=== PATIENT | female | born 1965 | race Caucasian/White ===

== ENCOUNTER → 2020-11-26 | Outpatient (CLI) | payer BC ==
--- NOTE | 2020-11-26 13:07 | Diagnostic Imaging Report ---
INDICATION: ENLARGED THYROID TECHNIQUE: Grayscale sonographic images of the thyroid gland. CORRELATION STUDY: None. FINDINGS: RIGHT LOBE: Enlarged at 7.2 x 3.7 x 4.9 cm. Heterogeneous echotexture throughout the right lobe. Within the medial aspect is a slightly lobulated more focal uniformly hyperechoic nodule. There is some internal vascularity present. This measures 1.0 x 1.2 x 1.5 cm. LEFT LOBE: 7.1 x 2.6 x 3.5 cm. There is very heterogeneous echotexture throughout the left lobe. Isthmus is also enlarged and heterogeneous. There is diffuse increased vascularity throughout the thyroid gland. IMPRESSION: 1. Abnormal appearance about the thyroid gland which is rather enlarged with fairly heterogeneous echotexture along with increased vascularity. This is nonspecific but could be seen with underlying thyroiditis. Correlation with thyroid function status is recommended. If further assessment is desired, thyroid scan and uptake may be of additional diagnostic utility. 2. There is slightly more focal more uniformly hyperechoic nodule in the central right lobe at 1.5 cm in size. Follow-up ultrasound imaging in approximately six months is recommended for reassessment. (Normal gland size: 4-5 x 2 x 2 cm) Dictated by: Dictated on workstation # [id number]
--- NOTE | 2020-11-26 15:49 | Diagnostic Imaging Report ---
INDICATION: Routine screening. COMPARISON: 02/06/2015 and 06/29/2009. TECHNIQUE: 2D and 3D bilateral screening mammography was performed with CAD. FINDINGS: Scattered fibroglandular densities are identified bilaterally. There has been development of some calcifications in the outer right breast at mid depth which are somewhat linear in distribution. It is uncertain if these could be vascular versus ductal. A nodular density more medially in the right breast is stable. There is a benign nodule in the lateral right breast as well. The nodular density in the outer aspect of the left breast at mid to posterior depth appears stable. No spiculated mass is identified. The axillae are unremarkable. IMPRESSION: Right breast calcifications. Additional views are recommended for further evaluation. ACR BI-RADS Category 0: Incomplete. (Needs additional imaging evaluation). Result letter will be mailed to the patient. Note: At least 10% of breast cancer is not imaged by mammography. Dictated by: Dictated on workstation # [id number]
== END ==
LOC: RAD 11:01
PROVIDERS: ATTEND Surgery
DX: Z12.31 Encounter for screening mammogram for malignant neoplasm of breast (principal); R92.1 Mammographic calcification found on diagnostic imaging of breast; E04.9 Nontoxic goiter, unspecified
CPT/HCPCS: 76536; 77063; 77067

== ENCOUNTER → 2020-12-17 | Outpatient (CLI) | payer BC ==
--- NOTE | 2020-12-17 13:05 | Diagnostic Imaging Report ---
INDICATION: Right breast calcifications. Patient presents for additional views. Correlation is made with the recent screening mammogram from 11/26/2020. Unilateral right 2-D and 3-D diagnostic mammography was performed. This includes magnification CC and ML views as well as conventional 90 degrees lateral views. Additional views demonstrate numerous calcifications in the right breast. There are some calcifications with demonstrating a branching ductal pattern in the outer portion of the right breast, mid 3rd. Biopsy of these calcifications is recommended. These do demonstrate some pleomorphism. No associated soft tissue mass is seen. There are indeterminate clusters of microcalcifications more anteriorly in the right breast outer portion. IMPRESSION: BI-RADS Category 4 Indeterminate microcalcifications in the outer right breast mid depth, concerning for DCIS. Tissue sampling is recommended. These would be amenable to stereotactic biopsy. ACR BI-RADS Category 4: Suspicious abnormality. Result letter will be mailed to the patient. Note: At least 10% of breast cancer is not imaged by mammography. Dictated by: Dictated on workstation # [id number]
== END ==
LOC: RAD 12:27
PROVIDERS: ATTEND Nurse Practitioner
DX: R92.0 Mammographic microcalcification found on diagnostic imaging of breast (principal)

== ENCOUNTER → 2020-12-20 | Outpatient (CLI) | payer BC ==
[~2020-12-20] VITALS: Ht 175.3 cm; Wt 125.0 kg
[~2020-12-20] MED LIST: LIDOCAINE 1% INJ 20 ML 20 ML VIAL INJ ONE
--- NOTE | 2020-12-20 10:25 | Diagnostic Imaging Report ---
Indication: Right breast calcifications. Patient presents for stereotactic biopsy. Patient is brought to stereotactic suite and placed on a chair in a sitting upright position. Right breast was positioned lateral medial. The calcifications in the central slightly outer right breast were stereotactically targeted. Lateral right breast was then prepped and draped in usual sterile fashion. Small amount of 1% lidocaine was utilized for local anesthesia. 8 gauge needle was advanced from a lateral medial approach place per stereotactic coordinates. A total of 4 core biopsies were obtained with vacuum-assisted device. Specimen radiograph does demonstrate microcalcifications within specimen labeled #1 and 4. All images were viewed on a dedicated workstation. IMPRESSION: Successful stereotactic biopsy of right breast calcifications, as described with dedicated vacuum-assisted device. Pathology results are currently pending. Dictated by: Dictated on workstation # [id number]
== END ==
LOC: RAD 08:45
PROVIDERS: ATTEND Surgery
DX: R92.1 Mammographic calcification found on diagnostic imaging of breast (principal)
CPT/HCPCS: 19081

== ENCOUNTER 2021-11-18 21:48 | Emergency (ER) | payer BC ==
[~2021-11-18] VITALS: Ht 175 cm; Wt 113.3 kg
[2021-11-18 22:05] VITALS: BP 127/64
--- NOTE | 2021-11-18 22:28 | ED Cardiac General ---
History of Present Illness General Chief Complaint: Cardiac/General Problems Stated Complaint: ELEVATED HEART RATE,DIZZINESS Source: patient Exam Limitations: no limitations History of Present Illness Date Seen by Provider: Nov 18, 2021 Time Seen by Provider: 21:50 Initial Comments 56-year-old female with past medical history of hypertension coming in due to palpitations. She says the pain off and on today but constant since around 7 PM. She feels like her heart is racing. This is happened once in the past and it quickly stopped. She is never seen anybody for this in the past. Denies any chest pain, shortness of breath, abdominal pain, nausea, vomiting, diarrhea, fever, chills, weakness, numbness, cough, headache, or any other concerns. Has not taken any medications for this as of yet. She normally drinks 1 soda a day, and today she has had 3. Allergies and Home Medications Allergies Coded Allergies: No Known Drug Allergies (Unverified , 06/29/15) Patient Home Medication List Home Medication List Reviewed: Yes Review of Systems Review of Systems Constitutional: No chills, No fever EENTM: No Blurred Vision Respiratory: Denies Cough, Denies Shortness of Air Cardiovascular: Denies Chest Pain; Lightheadedness, Palpitations Gastrointestinal: Denies Abdominal Pain, Denies Diarrhea, Denies Nausea, Denies Vomiting Genitourinary: No Symptoms Reported Musculoskeletal: no symptoms reported Skin: no symptoms reported Psychiatric/Neurological: No Symptoms Reported Endocrine: No Symptoms Reported Hematologic/Lymphatic: No Symptoms Reported All Other Systems Reviewed Negative Unless Noted: Yes Past Fdzyjoc-Bkeuzz-Hfbwjf Hx Patient Social History Tobacco Use?: No Substance use?: No Alcohol Use?: No Past Medical History Surgeries: No Physical Exam Vital Signs Vital Signs - First Documented 11/18/21 22:05 Pulse 140 Resp 15 B/P (MAP) 127/64 (85) Pulse Ox 95 O2 Delivery Room Air Capillary Refill : Height, Weight, BMI Height: 5'9.00" Weight: 250lbs. oz. 113.795067hj; 40.67 BMI Method: General Appearance: No Apparent Distress, WD/WN HEENT: PERRL/EOMI, Normal ENT Inspection, Pharynx Normal Neck: Full Range of Motion, Normal Inspection, Non Tender, Supple Respiratory: Chest Non Tender, Lungs Clear, Normal Breath Sounds, No Accessory Muscle Use, No Respiratory Distress Cardiovascular: No Edema, Normal Peripheral Pulses, Tachycardia Gastrointestinal: Normal Bowel Sounds, Non Tender, Soft; No Distended, No Guarding Extremity: Normal Capillary Refill, Normal Inspection, Normal Range of Motion, Non Tender, No Calf Tenderness Neurologic/Psychiatric: Alert, No Motor/Sensory Deficits, Normal Mood/Affect Skin: Normal Color, Warm/Dry Lymphatic: No Adenopathy Progress/Results/Core Measures Results/Orders Lab Results Laboratory Tests Test 11/18/21 22:25 Range/Units Sodium Level 140 135-145 MMOL/L Potassium Level 3.4 L 3.6-5.0 MMOL/L Chloride Level 103 98-107 MMOL/L Carbon Dioxide Level 26 21-32 MMOL/L Anion Gap 11 5-14 MMOL/L Blood Urea Nitrogen 12 7-18 MG/DL Creatinine 0.72 0.60-1.30 MG/DL Estimat Glomerular Filtration Rate 97 BUN/Creatinine Ratio 17 Glucose Level 164 H 70-105 MG/DL Calcium Level 9.0 8.5-10.1 MG/DL Magnesium Level 2.0 1.6-2.4 MG/DL My Orders Orders - CALIN BECKMAN MD Midazolam Injection (Versed Injection) (11/18/21 22:30) Adenosine Injection (Adenocard Injection (11/18/21 22:30) Ekg Tracing (11/18/21 22:21) Ed Iv/Invasive Line Start (11/18/21 22:42) Ns Iv 1000 Ml (Sodium Chloride 0.9%) (11/18/21 22:45) Ns Iv 1000 Ml (Sodium Chloride 0.9%) (11/18/21 22:43) Adenosine Injection (Adenocard Injection (11/18/21 22:59) Diltiazem Injection (Cardizem Injection) (11/18/21 23:15) Diltiazem Drip Pre-Mix (Cardizem Drip Pr (11/18/21 23:15) Diltiazem Drip Pre-Mix (Cardizem Drip Pr (11/18/21 23:11) Diltiazem Cd 24 Hr Capsule (Cardizem Cd (11/18/21 23:20) Basic Metabolic Panel (11/18/21 23:21) Magnesium (11/18/21 23:21) Ekg Tracing (11/18/21 23:43) Thyroid Stimulating Hormone (11/18/21 23:51) Apixaban Tablet (Eliquis Tablet) (11/19/21 00:00) Potassium Chloride (Tablet) (K Dur Table (11/19/21 00:00) Medications Given in ED Current Medications Medications Dose Ordered Sig/Tommy Route Start Time Stop Time Status Last Admin Dose Admin Adenosine 6 mg STK-MED ONCE IV 11/18/21 22:59 11/18/21 23:03 DC 11/18/21 23:05 6 MG Adenosine 12 mg ONCE ONCE IV 11/18/21 22:30 11/18/21 22:31 DC 11/18/21 22:55 12 MG Diltiazem HCl 20 mg ONCE ONCE IVP 11/18/21 23:15 11/18/21 23:16 DC 11/18/21 23:20 20 MG Diltiazem HCl 125 ml @ ud STK-MED ONCE IV 11/18/21 23:11 11/18/21 23:15 DC 11/18/21 23:28 5 MLS/HR Midazolam HCl 1 mg ONCE ONCE IVP 11/18/21 22:30 11/18/21 22:31 DC 11/18/21 22:53 1 MG Vital Signs/I&O 11/18/21 22:05 Pulse 140 Resp 15 B/P (MAP) 127/64 (85) Pulse Ox 95 O2 Delivery Room Air Progress Progress Note : Progress Note 56-year-old female with above history coming in with intermittent palpitations and feel like her heart is racing but has been constant for the past couple hours. Heart rate was in the 140s on arrival. EKG consistent with SVT. Tried vagal maneuvers x2 which were unsuccessful. Afterwards an IV was placed and we gave adenosine with 2 attempts and it transiently fixed her but then she went back into SVT. She was given a bolus of IV fluids as well. Afterwards we tried IV diltiazem. We bolused her with 20 mg of IV diltiazem which converted her to sinus rhythm. She seemed to intermittently go back for shorter periods of time into SVT so started to drip and gave her long-acting oral diltiazem. We titra denise off the drip after about 20 minutes to give the oral medication time to work. The patient then went into atrial fibrillation but her rate was controlled. She is not sure if she is ever been in A. fib before, and I am unsure if she was in earlier today. Her [id number] score is 2 and has no bleeding risk so I will give her a dose of Eliquis followed by a prescription. 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 Given she is rate controlled, and symptom-free at this time I believe it is appropriate for her to be discharged with outpatient follow-up with cardiology. She says she prefers to follow-up with [facility] where her other doctors are. Her potassium came back just slightly low so she was given oral potassium as well. TSH is pending. She was then discharged home in stable condition with strict return precautions. Initial ECG Impression Date: Nov 18, 2021 Initial ECG Impression Time: 22:00 Initial ECG Rate: 141 Initial ECG Rhythm: SVT Comment Narrow QRS, normal axis, no significant ST changes Departure Impression Primary Impression: SVT (supraventricular tachycardia) Additional Impression: Afib Qualified Codes: I48.91 - Unspecified atrial fibrillation Disposition: 01 HOME, SELF-CARE Condition: Stable Departure-Patient Inst. Decision time for Depature: 23:57 Referrals: SELFBELEM MD (PCP/Family) Primary Care Physician Patient Instructions: Atrial Fibrillation, Paroxysmal Supraventricular Tachycardia (DC) Add. Discharge Instructions: You were seen in the emergency department after your heart was racing. Initially you were in a rhythm called supraventricular tachycardia otherwise known as SVT. We gave you medicines to get you out of this rhythm. When he got out of it you went into atrial fibrillation. We will be starting you on a blood thinner given the risk of stroke with A. fib which this should lower your risk. We will also be starting you on a medication called metoprolol which should help keep your heart rate lower. Please follow-up with a pantograph machine set up operator of your choice at [facility] which you said you preferred. Please also call your primary care doctor to follow-up with him. If you develop any chest pain, shortness of breath, or any other concerns and please come back to the ER. Scripts Metoprolol Tartrate (Metoprolol Tartrate) 25 Mg Tablet 12.5 MG PO BID for 30 Days, #30 TAB Prov: CALIN BECKMAN MD 11/18/21 Apixaban (Eliquis) 5 Mg Tablet 5 MG PO BID for 30 Days, #60 TAB Prov: CALIN BECKMAN MD 11/18/21 Work/School Note: Work Release Form Date Seen in the Emergency Department: Nov 18, 2021 Return to Work: Nov 20, 2021 Restrictions: No Restrictions CALIN BECKMAN MD Nov 18, 2021 22:28
[2021-11-18] MEDS ORDERED: ADENOSINE 6 MG/2 ML (ADENOCARD) VIAL IV ONE ×2 (22:30→22:59)
[2021-11-18] MEDS ORDERED: MIDAZOLAM 2 MG/2 ML (VERSED) VIAL IVP ONE (22:30)
[2021-11-18] MEDS ORDERED: LACTATED RINGERS 1,000 ML IV SCH (22:30)
[2021-11-18] MEDS ORDERED: NS IV 1000 ML 1,000 ML ONE (22:43)
[2021-11-18] MEDS ORDERED: NS IV 1000 ML 1,000 ML IV SCH (22:45)
[2021-11-18] MEDS ORDERED: dilTIAZem DRIP PRE-MIX 125 ML IV ONE (23:11)
[2021-11-18] MEDS ORDERED: dilTIAZem DRIP PRE-MIX 125 ML IV SCH (23:15)
[2021-11-18] MEDS ORDERED: dilTIAZem120 MG (CARDIZEM CD) CAP PO STA (23:20)
[2021-11-18 23:36] LABS: POTASSIUM 3.4 MMOL/L (3.6-5.0)
[2021-11-18 23:42] LABS: CREATININE SERUM 0.72 MG/DL (0.60-1.30)
[2021-11-18] MEDS ORDERED: APIX5TAB PO (23:59)
[2021-11-18] MEDS ORDERED: METO-333 PO (23:59)
[2021-11-19] MEDS ORDERED: APIXABAN 5 MG (ELIQUIS) TABLET PO ONE
[2021-11-19] MEDS ORDERED: KCL 20 MEQ TAB (K-DUR) PO ONE
== END 2021-11-19 00:26 | disposition home or self-care (01) ==
LOC: EDUNIT# 21:48 → ER FS 21:49
DX: I47.1 Supraventricular tachycardia (principal); I48.91 Unspecified atrial fibrillation; I10 Essential (primary) hypertension
CPT/HCPCS: 36415; 80048; 83735; 84443

== ENCOUNTER → 2021-12-23 | Outpatient (CLI) | payer BC ==
[~2021-12-23] MED LIST changes: +APIX5TAB PO; -LIDOCAINE 1% INJ 20 ML 20 ML VIAL INJ ONE; +METO-333 PO
== END ==
LOC: LABNPT 10:24
PROVIDERS: ATTEND Internal Medicine Cardiovascular Disease
DX: Z01.810 Encounter for preprocedural cardiovascular examination (principal); Z01.812 Encounter for preprocedural laboratory examination; I48.0 Paroxysmal atrial fibrillation; Z20.822 Contact with and (suspected) exposure to COVID-19
CPT/HCPCS: 87635

== ENCOUNTER 2022-11-29 16:12 | Emergency (ER) | payer BC ==
[~2022-11-29] VITALS: Ht 175.3 cm; Wt 117.9 kg
--- NOTE | 2022-11-29 16:21 | ED Upper Extremity ---
General Chief Complaint: Upper Extremity Stated Complaint: LT WRIST INJ History of Present Illness Date Seen by Provider: Nov 29, 2022 Time Seen by Provider: 16:21 Initial Comments 57-year-old female presents with left wrist injury. She reports that she slipped in the mud and fell landing on her arm. She landed somewhat flat on her left arm but felt a "pop in her wrist. She has swelling over the lateral posterior aspect. She has painful range of motion. She reports no other injuries Allergies and Home Medications Allergies Coded Allergies: No Known Drug Allergies (Unverified , 06/29/15) Patient Home Medication List Home Medication List Reviewed: Yes Apixaban (Eliquis) 5 Mg Tablet, 5 MG PO BID Prescribed by: CALIN BECKMAN on 11/18/21 086 Metoprolol Tartrate (Metoprolol Tartrate) 25 Mg Tablet, 12.5 MG PO BID Prescribed by: CALIN BECKMAN on 11/18/21 147 Review of Systems Constitutional: no symptoms reported EENTM: no symptoms reported Respiratory: no symptoms reported Cardiovascular: no symptoms reported Gastrointestinal: no symptoms reported Genitourinary: no symptoms reported Musculoskeletal: see HPI Skin: no symptoms reported Psychiatric/Neurological: No Symptoms Reported Past Zvvydol-Nqtgfc-Ocyols Hx Immunizations Up To Date First/Initial COVID19 Vaccinat: 02-13 Second COVID19 Vaccination Alex: 03-15 Past Medical History Surgeries: No Physical Exam Vital Signs Vital Signs - First Documented 11/29/22 16:16 Temp 35.7 Pulse 73 Resp 16 B/P (MAP) 149/92 (111) Pulse Ox 94 O2 Delivery Room Air Capillary Refill : Height, Weight, BMI Height: 5'9.00" Weight: 250lbs. oz. 113.892581wn; 36.00 BMI Method: General Appearance: WD/WN, no apparent distress HEENT: normal ENT inspection Neck: full range of motion, supple Cardiovascular: normal peripheral pulses, regular rate, rhythm Respiratory: lungs clear Gastrointestinal: non tender, soft Shoulder: normal inspection, non-tender Elbow/Forearm: normal inspection, non-tender Wrist: Yes bone tenderness, Yes deformity, Yes limited ROM, Yes soft tissue ten derness, Yes swelling Hand: normal inspection Neurologic/Psychiatric: alert, normal mood/affect, oriented x 3 Skin: normal color, warm/dry Progress/Results/Core Measures Results/Orders My Orders Orders - MÓNICA BENDER DO Wrist 3 View Left (11/29/22 16:22) Vital Signs/I&O 11/29/22 16:16 Temp 35.7 Pulse 73 Resp 16 B/P (MAP) 149/92 (111) Pulse Ox 94 O2 Delivery Room Air Progress Progress Note : Progress Note Patient's x-ray was reviewed. No acute fracture was noted. Patient with likely a wrist sprain. Recommended wman-vrw-pswzabn brace. She is stable and discharged Diagnostic Imaging Diagonstic Imaging: Xray Comments Date of Exam:11/29/22 WRIST 3 VIEW LEFT INDICATION: Fall, left wrist injury. TIME OF EXAM: 4:40 PM. EXAMINATION: Three views of the left wrist were obtained. FINDINGS: The distal radius and ulna appear to be intact. The carpus is intact. Metacarpals are unremarkable. No fractures are seen. IMPRESSION: No acute bony abnormality is detected. Reviewed: Reviewed by Me, Reviewed/Discussed Departure Impression Primary Impression: Unspecified sprain of left wrist, initial encounter Disposition: 01 HOME, SELF-CARE Condition: Stable Departure-Patient Inst. Referrals: SELFBELEM MD (PCP) Primary Care Physician Patient Instructions: Wrist Sprain ED Add. Discharge Instructions: You may use an Hector wrap or xbcz-hir-wgcfuew wrist brace as needed for pain. 4% topical lidocaine with menthol cream or gel use as directed on package. May try Voltaren cream or gel use as directed on package. Ice for the first 24 hours 3- 4 times daily for 15 minutes at a time then warm moist heat as needed. All discharge instructions reviewed with patient and/or family. Voiced understanding. MÓNICA BENDER DO Nov 29, 2022 16:21
--- NOTE | 2022-11-29 16:42 | Diagnostic Imaging Report ---
INDICATION: Fall, left wrist injury. TIME OF EXAM: 4:40 PM. EXAMINATION: Three views of the left wrist were obtained. FINDINGS: The distal radius and ulna appear to be intact. The carpus is intact. Metacarpals are unremarkable. No fractures are seen. IMPRESSION: No acute bony abnormality is detected. Dictated by: Dictated on workstation # [id number]
[2022-11-29 16:53] VITALS: BP 149/92
== END 2022-11-29 16:53 | disposition home or self-care (01) ==
LOC: EDUNIT# 16:12 → ER FS 16:13
DX: S63.502A Unspecified sprain of left wrist, initial encounter (principal); W01.0XXA Fall on same level from slipping, tripping and stumbling without subsequent striking against object, initial encounter
CPT/HCPCS: 73110

== ENCOUNTER 2023-08-25 22:58 | Observation (INO) | payer BC ==
[~2023-08-25] VITALS: Ht 177 cm; Wt 124.0 kg
--- NOTE | 2023-08-25 23:07 | ED Cardiac General ---
History of Present Illness General Stated Complaint: AFIB History of Present Illness Date Seen by Provider: Aug 25, 2023 Time Seen by Provider: 23:02 Initial Comments 58-year-old female with PMH of A-fib on Eliquis and metoprolol/breast ductal cancer with mastectomy and on estrogen replacement/thyroid disorder/SHALINI, is here with complaints of palpitations, and irregular heart rate noted on her iWatch. Patient has started exercising for 30 minutes a day for the past month and has lost 10 to 15 pounds. Patient went out today as well but did not have any symptoms at that time. Patient's symptoms began late evening tonight. Denies chest pain, shortness of breath, abdominal pain, recent illness, fever and chills, nausea and vomiting, diaphoresis. Patient took her metoprolol and Eliquis today. She is compliant with her medications. Allergies and Home Medications Allergies Coded Allergies: No Known Drug Allergies (Unverified , 06/29/15) Patient Home Medication List Home Medication List Reviewed: Yes Apixaban (Eliquis) 5 Mg Tablet, 5 MG PO BID Prescribed by: CALIN BECKMAN on 11/18/215 Metoprolol Tartrate (Metoprolol Tartrate) 25 Mg Tablet, 12.5 MG PO BID Prescribed by: CALIN BECKMAN on 11/18/21 3056 Review of Systems Review of Systems Constitutional: no symptoms reported EENTM: No Symptoms Reported Respiratory: No Symptoms Reported Cardiovascular: See HPI, Irregular Heart Rate, Palpitations Gastrointestinal: No Symptoms Reported Past Lrgbeeo-Sejsyu-Snncrk Hx Immunizations Up To Date First/Initial COVID19 Vaccinat: 02-13 Second COVID19 Vaccination Alex: 03-15 Third COVID19 Vaccination Date: 09-15 Past Medical History Surgery/Hospitalization HX: A-fib, v-tach Surgeries: No Physical Exam Vital Signs Vital Signs - First Documented 08/25/23 23:08 Temp 35.7 Pulse 131 Resp 18 B/P (MAP) 139/73 (95) Pulse Ox 20 O2 Delivery Room Air Capillary Refill : Height, Weight, BMI Height: 5'9.00" Weight: 250lbs. oz. 113.712684bn; 38.00 BMI Method: General Appearance: No Apparent Distress, Anxious, Obese HEENT: PERRL/EOMI Neck: Full Range of Motion, Normal Inspection Respiratory: Chest Non Tender, Lungs Clear, Normal Breath Sounds, No Accessory Muscle Use Cardiovascular: No Edema, Normal Peripheral Pulses, Irregularly Irregular, Tachycardia Gastrointestinal: Non Tender, Soft Extremity: Normal Range of Motion Neurologic/Psychiatric: Alert, Oriented x3, No Motor/Sensory Deficits Skin: Normal Color Progress/Results/Core Measures Results/Orders Lab Results Laboratory Tests Test 08/25/23 23:15 08/25/23 23:44 Range/Units White Blood Count 12.9 H 4.3-11.0 10^3/uL Red Blood Count 4.58 3.80-5.11 10^6/uL Hemoglobin 13.9 11.5-16.0 g/dL Hematocrit 41 35-52 % Mean Corpuscular Volume 89 80-99 fL Mean Corpuscular Hemoglobin 30 25-34 pg Mean Corpuscular Hemoglobin Concent 34 32-36 g/dL Red Cell Distribution Width 12.4 10.0-14.5 % Platelet Count 243 130-400 10^3/uL Mean Platelet Volume 9.9 9.0-12.2 fL Immature Granulocyte % (Auto) 0 % Neutrophils (%) (Auto) 59 42-75 % Lymphocytes (%) (Auto) 30 12-44 % Monocytes (%) (Auto) 9 0-12 % Eosinophils (%) (Auto) 2 0-10 % Basophils (%) (Auto) 0 0-10 % Neutrophils # (Auto) 7.6 1.8-7.8 10^3/uL Lymphocytes # (Auto) 3.8 1.0-4.0 10^3/uL Monocytes # (Auto) 1.2 H 0.0-1.0 10^3/uL Eosinophils # (Auto) 0.2 0.0-0.3 10^3/uL Basophils # (Auto) 0.0 0.0-0.1 10^3/uL Immature Granulocyte # (Auto) 0.0 0.0-0.1 10^3/uL Prothrombin Time 14.4 12.2-14.7 SEC INR Comment 1.1 0.8-1.4 Activated Partial Thromboplast Time 33 24-35 SEC Sodium Level 140 135-145 MMOL/L Potassium Level 4.2 3.6-5.0 MMOL/L Chloride Level 102 98-107 MMOL/L Carbon Dioxide Level 26 21-32 MMOL/L Anion Gap 12 5-14 MMOL/L Blood Urea Nitrogen 13 7-18 MG/DL Creatinine 0.74 0.60-1.30 MG/DL Estimat Glomerular Filtration Rate 93 BUN/Creatinine Ratio 18 Glucose Level 107 H 70-105 MG/DL Calcium Level 10.0 8.5-10.1 MG/DL Corrected Calcium 9.9 8.5-10.1 MG/DL Magnesium Level 2.3 1.6-2.4 MG/DL Total Bilirubin 0.3 0.1-1.0 MG/DL Aspartate Amino Transf (AST/SGOT) 21 5-34 U/L Alanine Aminotransferase (ALT/SGPT) 18 0-55 U/L Alkaline Phosphatase 97 40-136 U/L Troponin I < 0.30 <0.30 NG/ML Pro-B-Type Natriuretic Peptide 103.9 <125.0 PG/ML Total Protein 8.0 6.4-8.2 GM/DL Albumin 4.1 3.2-4.5 GM/DL Urine Color YELLOW Urine Clarity CLEAR Urine pH 6.0 5-9 Urine Specific [place] <=1.005 1.016-1.022 Urine Protein NEGATIVE NEGATIVE Urine Glucose (UA) NEGATIVE NEGATIVE Urine Ketones NEGATIVE NEGATIVE Urine Nitrite NEGATIVE NEGATIVE Urine Bilirubin NEGATIVE NEGATIVE Urine Urobilinogen 0.2 < = 1.0 MG/DL Urine Leukocyte Esterase 2+ H NEGATIVE Urine RBC (Auto) NEGATIVE NEGATIVE Urine RBC RARE /HPF Urine WBC 5-10 H /HPF Urine Squamous Epithelial Cells 0-2 /HPF Urine Renal Epithelial Cells RARE /HPF Urine Crystals NONE /LPF Urine Bacteria NEGATIVE /HPF Urine Casts PRESENT /LPF Urine Hyaline Casts 0-2 H /LPF Urine Mucus SMALL H /LPF Urine Culture Indicated YES Urine Opiates Screen NEGATIVE NEGATIVE Urine Oxycodone Screen NEGATIVE NEGATIVE Urine Methadone Screen NEGATIVE NEGATIVE Urine Barbiturates Screen NEGATIVE NEGATIVE Ur Tricyclic Antidepressants Screen NEGATIVE NEGATIVE Urine Phencyclidine Screen NEGATIVE NEGATIVE Urine Amphetamines Screen NEGATIVE NEGATIVE Urine Methamphetamines Screen NEGATIVE NEGATIVE Urine Benzodiazepines Screen NEGATIVE NEGATIVE Urine Cocaine Screen NEGATIVE NEGATIVE Urine Cannabinoids Screen NEGATIVE NEGATIVE My Orders Orders - CAITLIN CORNELL MD Continuous Ekg Monitoring (08/25/23 23:07) Ekg Tracing (08/25/23 23:07) Diltiazem Injection (Diltiazem Injection (08/25/23 23:15) Diltiazem Drip Pre-Mix (Diltiazem Drip P (08/25/23 23:08) Cbc And Automated Diff (08/25/23 23:11) Comprehensive Metabolic Panel (08/25/23 23:11) Magnesium (08/25/23 23:11) Protime With Inr (08/25/23 23:11) Partial Thromboplastin Time (08/25/23 23:11) Probnp Fs (08/25/23 23:11) Troponin I Fs (08/25/23 23:11) Chest 1 View Ap/Pa Only (08/25/23 23:19) Drug Screen Stat (Urine) (08/25/23 23:40) Ua Culture If Indicated (08/25/23 23:40) Urine Culture (08/25/23 23:44) Ed Admission (Communication) (08/26/23 00:29) Medications Given in ED Current Medications Medications Dose Ordered Sig/Tommy Route Start Time Stop Time Status Last Admin Dose Admin Diltiazem HCl 10 mg ONCE ONCE IVP 08/25/23 23:15 08/25/23 23:17 DC 08/25/23 23:22 10 MG Vital Signs/I&O 08/25/23 08/25/23 08/25/23 23:08 23:22 23:26 Temp 35.7 Pulse 131 140 95 Resp 18 B/P (MAP) 139/73 (95) 151/99 115/67 Pulse Ox 20 O2 Delivery Room Air Progress Progress Note : Progress Note 1. 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 But they only had a bed available at [facility] and pt refused to go there since she only wants to go to [facility]. - Pt accepted to [facility] by Dr De Leon. Will admit to observation in ICU. Initial ECG Impression Date: Aug 25, 2023 Initial ECG Impression Time: 23:12 Initial ECG Rate: 125 Initial ECG Rhythm: A Fib/Flutter Initial ECG Intervals A-fib with RVR Initial ECG Impression: Atrial Fibrillation w/RVR Initial ECG Comparisson: No Previous ECG Available Diagnostic Imaging Diagonstic Imaging: Xray Plain Films/CT/US/NM/MRI: chest Departure Communication (Admissions) Time/Spoke to Admitting Phy: 00:28 - Pt accepted to [facility] by Dr De Leon. Will admit to observation in ICU. Impression Primary Impression: Atrial fibrillation with RVR Disposition: 30 STILL A PATIENT Condition: Stable Admissions Decision to Admit Reason: Admit from ER (General) Decision to Admit/Date: Aug 25, 2023 Time/Decision to Admit Time: 23:50 Transfer Method of Transfer: EMS Departure-Patient Inst. Referrals: BELEM HUDDLESTON MD (PCP/Family) Primary Care Physician CAITLIN CORNELL MD Aug 25, 2023 23:07
[2023-08-25] MEDS ORDERED: dilTIAZem DRIP PRE-MIX 125 ML IV STA (23:08)
[2023-08-25] MEDS ORDERED: dilTIAZem INJ 25 MG/5 ML VIAL IVP ONE (23:15)
[2023-08-25 23:27] LABS: BASOPHILS % (AUTO) 0 % (0-10); EOSINOPHILS # (AUTO) 0.2 10^3/uL (0.0-0.3); EOSINOPHILS % (AUTO) 2 % (0-10); HEMATOCRIT 41 % (35-52); HEMOGLOBIN 13.9 g/dL (11.5-16.0); LYMPHOCYTES # (AUTO) 3.8 10^3/uL (1.0-4.0); LYMPHOCYTES % (AUTO) 30 % (12-44); MEAN CORPUSCULAR HEMOGLOBIN 30 pg (25-34); MEAN CORPUSCULAR HGB CONC 34 g/dL (32-36); MEAN CORPUSCULAR VOLUME 89 fL (80-99); MEAN PLATELET VOLUME 9.9 fL (9.0-12.2); MONOCYTES # (AUTO) 1.2 10^3/uL (0.0-1.0); MONOCYTES % (AUTO) 9 % (0-12); NEUTROPHILS # (AUTO) 7.6 10^3/uL (1.8-7.8); NEUTROPHILS % (AUTO) 59 % (42-75); PLATELET COUNT 243 10^3/uL (130-400); WHITE BLOOD COUNT 12.9 10^3/uL (4.3-11.0)
[2023-08-25 23:38] LABS: INR 1.1 (0.8-1.4); PROTHROMBIN TIME PATIENT 14.4 SEC (12.2-14.7)
[2023-08-25 23:46] LABS: POTASSIUM 4.2 MMOL/L (3.6-5.0)
[2023-08-25 23:53] LABS: BILIRUBIN,URINE NEGATIVE (NEGATIVE); CLARITY,URINE CLEAR; COLOR,URINE YELLOW; GLUCOSE, URINE (UA) NEGATIVE (NEGATIVE); KETONES,URINE NEGATIVE (NEGATIVE); LEUKOCYTE ESTERASE ,URINE 2+ (NEGATIVE); NITRITE,URINE NEGATIVE (NEGATIVE); PROTEIN,URINE NEGATIVE (NEGATIVE)
[2023-08-25 23:53] LABS: ALANINE AMINOTRANSFERASE 18 U/L (0-55); ALBUMIN 4.1 GM/DL (3.2-4.5); ALKALINE PHOSPHATASE 97 U/L (40-136); BILIRUBIN,TOTAL 0.3 MG/DL (0.1-1.0); BUN/CREATININE RATIO 18; CARBON DIOXIDE 26 MMOL/L (21-32); CHLORIDE 102 MMOL/L (98-107); CREATININE SERUM 0.74 MG/DL (0.60-1.30); GFR ESTIMATED 93; GLUCOSE 107 MG/DL (70-105); MAGNESIUM 2.3 MG/DL (1.6-2.4); SODIUM 140 MMOL/L (135-145)
[2023-08-26 00:02] LABS: BACTERIA,URINE NEGATIVE /HPF; RBC,URINE RARE /HPF; RENAL EPITHELIAL CELLS,URINE RARE /HPF; SQUAMOUS EPITHELIAL CELL,UR 0-2 /HPF
[2023-08-26 00:03] LABS: HYALINE CASTS, URINE 0-2 /LPF
[2023-08-26 00:05] LABS: AMPHETAMINE SCREEN, URINE NEGATIVE (NEGATIVE); BARBITURATE SCREEN URINE NEGATIVE (NEGATIVE); CANNABINOID SCREEN, URINE NEGATIVE (NEGATIVE); COCAINE SCREEN URINE NEGATIVE (NEGATIVE); METHADONE STAT NEGATIVE (NEGATIVE); OPIATE SCREEN URINE NEGATIVE (NEGATIVE); OXYCODONE STAT NEGATIVE (NEGATIVE); TRICYCLIC ANTIDEPRESSANTS SCRE NEGATIVE (NEGATIVE)
[2023-08-26] MEDS ORDERED: NS IV 500 ML 500 ML ONE (00:57)
[2023-08-26] MEDS ORDERED: NS IV 500 ML 500 ML IV ONE (01:00)
[2023-08-26 01:11] VITALS: BP 111/98
--- NOTE | 2023-08-26 02:52 | Tele-ICU Progress Note ---
Progress Note 58F with h/o afib on eliquis and metoprolol, BRCA s/p mastectomy on ER therapy, SHALINI transferred from [facility] ED for afib with RVR. She has been working out daily for the past month, including today without issue. This evening developed palpitations and her Apple Watch indicated an irregular HR. She was started on a cardizem gtt with initial improvement in HR from 140s to 100s. Now 97/61 with HR 87, fib. - afib ---cardiology consult ---cardizem for rate control ---continue home eliquis Patient assessed via real time audiovisual communication system. CCT 8 min Focused Exam Height, Weight, BMI Height: 5'9.00" Weight: 250lbs. oz. 113.799638mh; 36.00 BMI Method: NIKIA CUEVAS MD Aug 26, 2023 02:52
[2023-08-26] MEDS ORDERED: dilTIAZem DRIP 125 MG/125 ML DRIP IV SCH (03:00)
[2023-08-26] MEDS ORDERED: ACETAMINOPHEN 325 MG TABLET PO PRN (03:00)
[2023-08-26] MEDS ORDERED: MELATONIN 3 MG TABLET PO PRN (03:00)
[2023-08-26] MEDS ORDERED: CATHETER FLUSH 10 ML SYR IVP PRN (03:00)
[2023-08-26] MEDS ORDERED: NS IV 500 ML 500 ML IV PRN (03:15)
[2023-08-26] MEDS ORDERED: NS IV 1000 ML 1,000 ML IV PRN (03:15)
[2023-08-26 04:48] LABS: BASOPHILS % (AUTO) 0 % (0-10); EOSINOPHILS # (AUTO) 0.2 10^3/uL (0.0-0.3); EOSINOPHILS % (AUTO) 1 % (0-10); HEMATOCRIT 40 % (35-52); HEMOGLOBIN 13.6 g/dL (11.5-16.0); LYMPHOCYTES # (AUTO) 2.9 10^3/uL (1.0-4.0); LYMPHOCYTES % (AUTO) 26 % (12-44); MEAN CORPUSCULAR HEMOGLOBIN 30 pg (25-34); MEAN CORPUSCULAR HGB CONC 34 g/dL (32-36); MEAN CORPUSCULAR VOLUME 90 fL (80-99); MEAN PLATELET VOLUME 10.1 fL (9.0-12.2); MONOCYTES # (AUTO) 0.8 10^3/uL (0.0-1.0); MONOCYTES % (AUTO) 7 % (0-12); NEUTROPHILS # (AUTO) 7.2 10^3/uL (1.8-7.8); NEUTROPHILS % (AUTO) 65 % (42-75); PLATELET COUNT 239 10^3/uL (130-400); WHITE BLOOD COUNT 11.1 10^3/uL (4.3-11.0)
[2023-08-26 05:09] LABS: ALBUMIN 3.7 GM/DL (3.2-4.5); BILIRUBIN,TOTAL 0.4 MG/DL (0.1-1.0); CALCIUM 9.5 MG/DL (8.5-10.1); CREATININE SERUM 0.73 MG/DL (0.60-1.30); MAGNESIUM 1.9 MG/DL (1.6-2.4); PHOSPHORUS 3.8 MG/DL (2.3-4.7); POTASSIUM 3.8 MMOL/L (3.6-5.0); TOTAL PROTEIN 7.2 GM/DL (6.4-8.2)
[2023-08-26] MEDS ORDERED: POTASSIUM CHLORIDE 20 MEQ TABLET PO SCH (06:00)
[2023-08-26] MEDS ORDERED: POTASSIUM CL 10MEQ/50ML IVPB 50 ML IV SCH (06:00)
[2023-08-26] MEDS ORDERED: MAGNESIUM 1 GM/100 ML IVPB 100 ML IV SCH (06:00)
[2023-08-26] MEDS ORDERED: CATHETER FLUSH 10 ML SYR IVP SCH (06:00)
[2023-08-26] MEDS ORDERED: LEVOTHYROXINE 88 MCG TABLET PO SCH (06:30)
--- NOTE | 2023-08-26 06:59 | Diagnostic Imaging Report ---
INDICATION: Atrial fibrillation. FINDINGS: Lungs are clear. No failure, effusion or pneumothorax. IMPRESSION: No acute appearing abnormality. Dictated by: Dictated on workstation # [id number]
[2023-08-26] MEDS ORDERED: meTOprolol TARTRATE (IR) 50 MG TABLET PO SCH (09:00)
[2023-08-26] MEDS ORDERED: POTASSIUM CHLORIDE 20 MEQ TABLET PO ONE (09:00)
[2023-08-26] MEDS ORDERED: APIXABAN 5 MG TABLET PO SCH (09:00)
--- NOTE | 2023-08-26 09:48 | Consultation-Cardiology ---
HPI-Cardiology Cardiology Consultation Date of Consultation 08/26/23 Date of Admission Time Seen by Provider: 09:42 Indication: Atrial fibrillation HPI 58 years old lady with history of paroxysmal atrial fibrillation, follows with Dr. Thomas at [facility]. She was diagnosed with atrial fibrillation in October 2021 had cardioversion. Had another admission in May 2023 with atrial fibrillation. Has been compliant with her medication. Patient has been working out and working on weight loss. Had difficulty achieving adequate thyroid control. Patient started to have palpitation, came into the emergency room and she was noted to be in atrial fibrillation with rapid ventricular response, started on Cardizem drip, currently borderline hypotensive. Home Medications & Allergies Allergies: Coded Allergies: No Known Drug Allergies (Unverified , 06/29/15) Home Medication List Reviewed: Yes HCH-Lqzdip-Xkseqa Hx Patient Social History Marital Status: Employed/Student: employed Alcohol Use?: No Immunizations Up To Date Date of Influenza Vaccine: Aug 19, 2023 Past Medical History Discussed below Family Medical History Significant Family History: No Pertinent Family Hx Review of Systems-General Review of Systems Constitutional: no symptoms reported, malaise EENTM: see HPI, no symptoms reported Respiratory: no symptoms reported, see HPI Cardiovascular: see HPI; No chest pain, No edema, No Hx of Intervention; palpitations; No syncope, No vascular heart diseas, No other Gastrointestinal: no symptoms reported, see HPI Genitourinary: no symptoms reported, see HPI Musculoskeletal: no symptoms reported, see HPI Skin: no symptoms reported, see HPI Psychiatric/Neurological: No Symptoms Reported, See HPI Reviewed Test Results Reviewed Test Results Lab Laboratory Tests Test 08/25/23 23:15 08/25/23 23:44 08/26/23 04:01 Range/Units White Blood Count 12.9 H 11.1 H 4.3-11.0 10^3/uL Red Blood Count 4.58 4.51 3.80-5.11 10^6/uL Hemoglobin 13.9 13.6 11.5-16.0 g/dL Hematocrit 41 40 35-52 % Mean Corpuscular Volume 89 90 80-99 fL Mean Corpuscular Hemoglobin 30 30 25-34 pg Mean Corpuscular Hemoglobin Concent 34 34 32-36 g/dL Red Cell Distribution Width 12.4 12.3 10.0-14.5 % Platelet Count 243 239 130-400 10^3/uL Mean Platelet Volume 9.9 10.1 9.0-12.2 fL Immature Granulocyte % (Auto) 0 0 % Neutrophils (%) (Auto) 59 65 42-75 % Lymphocytes (%) (Auto) 30 26 12-44 % Monocytes (%) (Auto) 9 7 0-12 % Eosinophils (%) (Auto) 2 1 0-10 % Basophils (%) (Auto) 0 0 0-10 % Neutrophils # (Auto) 7.6 7.2 1.8-7.8 10^3/uL Lymphocytes # (Auto) 3.8 2.9 1.0-4.0 10^3/uL Monocytes # (Auto) 1.2 H 0.8 0.0-1.0 10^3/uL Eosinophils # (Auto) 0.2 0.2 0.0-0.3 10^3/uL Basophils # (Auto) 0.0 0.0 0.0-0.1 10^3/uL Immature Granulocyte # (Auto) 0.0 0.0 0.0-0.1 10^3/uL Prothrombin Time 14.4 12.2-14.7 SEC INR Comment 1.1 0.8-1.4 Activated Partial Thromboplast Time 33 24-35 SEC Sodium Level 140 140 135-145 MMOL/L Potassium Level 4.2 3.8 3.6-5.0 MMOL/L Chloride Level 102 108 H 98-107 MMOL/L Carbon Dioxide Level 26 24 21-32 MMOL/L Anion Gap 12 8 5-14 MMOL/L Blood Urea Nitrogen 13 12 7-18 MG/DL Creatinine 0.74 0.73 0.60-1.30 MG/DL Estimat Glomerular Filtration Rate 93 94 BUN/Creatinine Ratio 18 16 Glucose Level 107 H 127 H 70-105 MG/DL Calcium Level 10.0 9.5 8.5-10.1 MG/DL Corrected Calcium 9.9 9.7 8.5-10.1 MG/DL Magnesium Level 2.3 1.9 1.6-2.4 MG/DL Total Bilirubin 0.3 0.4 0.1-1.0 MG/DL Aspartate Amino Transf (AST/SGOT) 21 18 5-34 U/L Alanine Aminotransferase (ALT/SGPT) 18 16 0-55 U/L Alkaline Phosphatase 97 85 40-136 U/L Troponin I < 0.30 <0.30 NG/ML Pro-B-Type Natriuretic Peptide 103.9 <125.0 PG/ML Total Protein 8.0 7.2 6.4-8.2 GM/DL Albumin 4.1 3.7 3.2-4.5 GM/DL Urine Color YELLOW Urine Clarity CLEAR Urine pH 6.0 5-9 Urine Specific [place] <=1.005 1.016-1.022 Urine Protein NEGATIVE NEGATIVE Urine Glucose (UA) NEGATIVE NEGATIVE Urine Ketones NEGATIVE NEGATIVE Urine Nitrite NEGATIVE NEGATIVE Urine Bilirubin NEGATIVE NEGATIVE Urine Urobilinogen 0.2 < = 1.0 MG/DL Urine Leukocyte Esterase 2+ H NEGATIVE Urine RBC (Auto) NEGATIVE NEGATIVE Urine RBC RARE /HPF Urine WBC 5-10 H /HPF Urine Squamous Epithelial Cells 0-2 /HPF Urine Renal Epithelial Cells RARE /HPF Urine Crystals NONE /LPF Urine Bacteria NEGATIVE /HPF Urine Casts PRESENT /LPF Urine Hyaline Casts 0-2 H /LPF Urine Mucus SMALL H /LPF Urine Culture Indicated YES Urine Opiates Screen NEGATIVE NEGATIVE Urine Oxycodone Screen NEGATIVE NEGATIVE Urine Methadone Screen NEGATIVE NEGATIVE Urine Barbiturates Screen NEGATIVE NEGATIVE Ur Tricyclic Antidepressants Screen NEGATIVE NEGATIVE Urine Phencyclidine Screen NEGATIVE NEGATIVE Urine Amphetamines Screen NEGATIVE NEGATIVE Urine Methamphetamines Screen NEGATIVE NEGATIVE Urine Benzodiazepines Screen NEGATIVE NEGATIVE Urine Cocaine Screen NEGATIVE NEGATIVE Urine Cannabinoids Screen NEGATIVE NEGATIVE Phosphorus Level 3.8 2.3-4.7 MG/DL Physical Exam Physical Exam Vital Signs Vital Signs - First Documented 08/25/23 08/26/23 08/26/23 23:08 02:53 03:32 Temp 35.7 Pulse 131 Resp 18 B/P (MAP) 139/73 (95) Pulse Ox 20 O2 Delivery Room Air O2 Flow Rate 2.00 FiO2 21 Capillary Refill : Less Than 3 Seconds Height, Weight, BMI Height: 5'9.00" Weight: 250lbs. oz. 113.770490hg; 36.38 BMI Method: General Appearance: No Apparent Distress, Anxious, Obese Eyes: Bilateral Eye Normal Inspection, Bilateral Eye PERRL, Bilateral Eye EOMI HEENT: PERRL/EOMI Neck: Full Range of Motion, Normal Inspection Respiratory: Chest Non Tender, Lungs Clear, Normal Breath Sounds, No Accessory Muscle Use Cardiovascular: No Edema, Normal Peripheral Pulses, Irregularly Irregular, Tachycardia Gastrointestinal: Non Tender, Soft Back: Normal Inspection, No CVA Tenderness, No Vertebral Tenderness Extremity: Normal Range of Motion Neurologic/Psychiatric: Alert, Oriented x3, No Motor/Sensory Deficits Skin: Normal Color Lymphatic: No Adenopathy A/P-Cardiology Admission Diagnosis Paroxysmal atrial fibrillation Tachycardia Palpitation Hypertension Assessment/Plan Paroxysmal atrial fibrillation, atrial fibrillation with rapid ventricular response at this time Had multiple episodes in the past. Has been maintained on metoprolol and Eliquis. Patient will need to be on antiarrhythmic medication. I discussed with her that treatment option, she will need to have a stress test or cardiac catheterization prior to initiating class Ic. We can try class III antiarrhythmic medication with Multaq. Patient has difficulty with achieving adequate thyroid control and amiodarone should not be used. She could benefit from the use of sotalol or Tikosyn which will require hospitalization for 3 days I will try electrical cardioversion today. Palpitation, secondary to atrial fibrillation Hypertension, monitor blood pressure BMI 39, patient has been working on weight loss, lost about 50 pounds BE DUNHAM MD Aug 26, 2023 09:48
--- NOTE | 2023-08-26 10:02 | History & Physical-Hospitalist ---
NATALY DOYLE MD, RESIDENT 08/26/23 1002: History of Present Illness HPI/Chief Complaint CC: Atrial fibrillation with RVR Patient is a 58-year-old female with a past medical history of atrial fibrillation, ductal breast cancer status postmastectomy and on estrogen replacement, hypothyroidism, sleep apnea who presented with palpitations and rapid heart rate that was noted on her Apple iWatch. She states that she was sitting watching TV at rest yesterday evening when she started noticing chest palpitations. She states she has been compliant with her metoprolol and Eliquis and otherwise felt well. She denies any chest pain, shortness of breath, abdominal pain, recent illness, fever, chills, nausea, vomiting. She presented to the ED for further evaluation. It was noted that she was in A-fib with RVR and thus was admitted for further management. Source: patient Exam Limitations: no limitations Date Seen 08/26/23 Time Seen by a Provider: 08:30 Attending Physician Paxton Gomez MD PCP Admitting Physician: Jessica Jasso DO Attending Physician: Jessica Jasso DO Referring Physician Date of Admission Aug 26, 2023 at 01:50 Home Medications & Allergies Home Medications Reviewed patient Home Medication Reconciliation performed by pharmacy medication reconciliations urgent care technician and/or nursing. Patients Allergies have been reviewed. Allergies Allergies Coded Allergies No Known Drug Allergies (Unverified06/29/15) Past Zlwffhj-Jrbnyj-Nlboyk Hx Patient Social History Marrital Status: Employed/Student: employed Tobacco Use?: No Use of E-Cig and/or Vaping dev: No Substance use?: No Alcohol Use?: No Pt feels they are or have been: No Immunizations Up To Date Date of Influenza Vaccine: Aug 19, 2023 First/Initial COVID19 Vaccinat: 02-13 Second COVID19 Vaccination Alex: 03-15 Current Status status: No Communicates: Verbally Primary Language: Uzbek Preferred Spoken Language: Uzbek Is interpretation needed?: No Family Medical History No Pertinent Family Hx Review of Systems Constitutional: No chills, No fever EENTM: No no symptoms reported Respiratory: No cough, No dyspnea on exertion, No short of breath Cardiovascular: No chest pain, No edema, No palpitations Gastrointestinal: No abdominal pain, No constipation, No diarrhea, No nausea, No vomiting Genitourinary: No dysuria Musculoskeletal: No no symptoms reported Skin: No no symptoms reported Psychiatric/Neurological: Denies No Symptoms Reported Physical Exam Physical Exam Vital Signs Vital Signs - First Documented 08/25/23 08/26/23 08/26/23 23:08 02:53 03:32 Temp 35.7 Pulse 131 Resp 18 B/P (MAP) 139/73 (95) Pulse Ox 20 O2 Delivery Room Air O2 Flow Rate 2.00 FiO2 21 Capillary Refill : Less Than 3 Seconds Height, Weight, BMI Height: 5'9.00" Weight: 250lbs. oz. 113.978160do; 36.38 BMI Method: General Appearance: No Apparent Distress HEENT: Normal ENT Inspection Neck: Full Range of Motion, Normal Inspection Respiratory: Chest Non Tender, Lungs Clear, Normal Breath Sounds, No Accessory Muscle Use, No Respiratory Distress Cardiovascular: No Edema, No Murmur, Irregularly Irregular Gastrointestinal: Normal Bowel Sounds, Non Tender, Soft Neurologic/Psychiatric: Alert, Oriented x3 Skin: Normal Color, Warm/Dry Results Results/Procedures Labs Laboratory Tests 08/25/23 23:15 08/26/23 04:01 Patient resulted labs reviewed. Imaging: Reviewed Imaging Films, Reviewed Imaging Report Imaging Chest x-ray (08/25/2023): IMPRESSION: No acute appearing abnormality. Assessment/Plan Admission Diagnosis Atrial fibrillation with RVR Admission Status: Observation Diagnosis/Problems Diagnosis/Problems (1) Atrial fibrillation with RVR Status: Acute Assessment & Plan: Patient has a history of atrial fibrillation on metoprolol and Eliquis at home. She denies missing any doses recently. She was noted to be in RVR in the ED and thus was admitted for further management. Plan: Cardiology consulted, appreciate recommendations. May plan for cardioversion later today. Continue home Eliquis Monitor on telemetry (2) Hypothyroidism Status: Chronic Assessment & Plan: Continue home levothyroxine (3) Sleep apnea Status: Chronic Assessment & Plan: Continue oxygen at night as needed due to sleep apnea history (4) UTI (urinary tract infection) Status: Acute Assessment & Plan: Patient noted to have 2+ leukocytes and 5-10 WBC on her urine. However she is asymptomatic denying any dysuria or suprapubic pain. Plan: Follow-up urine culture, if positive can send home with antibiotics (5) History of breast cancer Status: Chronic Assessment & Plan: Continue home medications. JESSICA JASSO DO 08/26/231955: History of Present Illness HPI/Chief Complaint Chief complaint: A-fib with RVR HPI: This is a 58-year-old female who has a past medical history of atrial fibrillation and breast cancer who presented to the ER with palpitations found to have A-fib with RVR. She has been maintained on Eliquis. She will be cardioverted and discharged home Source: patient, family Exam Limitations: no limitations Past Nkmiuem-Utsekc-Rsqslm Hx Patient Social History Marrital Status: Employed/Student: employed Smoking Status: Never a Smoker Past Medical History Atrial Fibrillation, Hypertension Breast Did You Recieve Any Treatments: Yes What Type of Treatment Did You: Chemotherapy, Radiation, Surgical Intervention Review of Systems Constitutional: see HPI Cardiovascular: palpitations Physical Exam Physical Exam General Appearance: No Apparent Distress Eyes: Right Eye Normal Inspection, Right Eye PERRL HEENT: PERRL/EOMI, TMs Normal, Normal ENT Inspection, Pharynx Normal, Moist Mucous Membranes Neck: Full Range of Motion, Normal Inspection, Non Tender Respiratory: Chest Non Tender, Lungs Clear, Normal Breath Sounds, No Accessory Muscle Use, No Respiratory Distress Cardiovascular: No Edema, No Gallop, No JVD, No Murmur, Normal Peripheral Pulses, Irregularly Irregular Gastrointestinal: Normal Bowel Sounds, No Organomegaly, No Pulsatile Mass, Non Tender, Soft Back: Normal Inspection, No CVA Tenderness, No Vertebral Tenderness Extremity: Normal Capillary Refill, Normal Inspection, Normal Range of Motion, Non Tender, No Calf Tenderness, No Pedal Edema Neurologic/Psychiatric: Alert, Oriented x3, No Motor/Sensory Deficits, Normal Mood/Affect Skin: Normal Color, Warm/Dry Lymphatic: No Adenopathy Assessment/Plan Admission Diagnosis Assessment: A-fib with RVR Palpitations Plan: Cardioversion Oral anticoagulants I personally performed the faustin portions of the visit, discussed case with resident and concur with resident documentation of history, physical exam, assessment and treatment plan unless otherwise noted. Admission Status: Observation NATALY DOYLE MD, RESIDENT Aug 26, 2023 10:02 JESSICA JASSO DO Aug 26, 2023 19:56
[2023-08-26] MEDS ORDERED: proPOfol INJECTION 200 MG/20 ML VIAL IV ONE (12:05)
[2023-08-26] MEDS ORDERED: DRONEDARONE 400 MG TABLET PO SCH (12:30)
[2023-08-26] MEDS ORDERED: METO50TA15 PO (12:37)
[2023-08-26] MEDS ORDERED: LEVO88TA54 PO (12:37)
[2023-08-26] MEDS ORDERED: DRON400T6 PO (12:37)
--- NOTE | 2023-08-26 12:38 | Discharge Summary ---
Diagnosis/Chief Complaint Date of Admission Aug 26, 2023 at 01:50 Date of Discharge Discharge Date: Aug 26, 2023 Discharge Diagnosis AF RVR s/p cardioversion Discharge Summary Discharge Physical Examination Allergies: Coded Allergies: No Known Drug Allergies (Unverified , 06/29/15) Vitals & I&Os Vital Signs Date Time Temp Pulse Resp B/P (MAP) Pulse Ox O2 Delivery O2 Flow Rate FiO2 08/26/23 13:00 59 107/61 (76) 96 Nasal Cannula 2.00 08/26/23 11:40 36.5 08/26/23 02:53 21 08/26/23 02:00 21 General Appearance: Alert, Oriented X3, Cooperative Hospital Course Was the Problem List Reviewed?: Yes Short course after AF RVR s/p cardioversion which was successful and she was DC home on OAC. Labs (last 24 hrs) Laboratory Tests 08/25/23 23:15: White Blood Count 12.9H, Red Blood Count 4.58, Hemoglobin 13.9, Hematocrit 41, Mean Corpuscular Volume 89, Mean Corpuscular Hemoglobin 30, Mean Corpuscular Hemoglobin Concent 34, Red Cell Distribution Width 12.4, Platelet Count 243, Mean Platelet Volume 9.9, Immature Granulocyte % (Auto) 0, Neutrophils (%) (Auto) 59, Lymphocytes (%) (Auto) 30, Monocytes (%) (Auto) 9, Eosinophils (%) (Auto) 2, Basophils (%) (Auto) 0, Neutrophils # (Auto) 7.6, Lymphocytes # (Auto) 3.8, Monocytes # (Auto) 1.2H, Eosinophils # (Auto) 0.2, Basophils # (Auto) 0.0, Immature Granulocyte # (Auto) 0.0, Prothrombin Time 14.4, INR Comment 1.1, Activated Partial Thromboplast Time 33, Sodium Level 140, Potassium Level 4.2, Chloride Level 102, Carbon Dioxide Level 26, Anion Gap 12, Blood Urea Nitrogen 13, Creatinine 0.74, Estimat Glomerular Filtration Rate 93, BUN/Creatinine Ratio 18, Glucose Level 107H, Calcium Level 10.0, Corrected Calcium 9.9, Magnesium Level 2.3, Total Bilirubin 0.3, Aspartate Amino Transf (AST/SGOT) 21, Alanine Aminotransferase (ALT/SGPT) 18, Alkaline Phosphatase 97, Troponin I < 0.30, Pro-B-Type Natriuretic Peptide 103.9, Total Protein 8.0, Albumin 4.1 08/25/23 23:44: Urine Color YELLOW, Urine Clarity CLEAR, Urine pH 6.0, Urine Specific [place] <=1.005, Urine Protein NEGATIVE, Urine Glucose (UA) NEGATIVE, Urine Ketones NEG ATIVE, Urine Nitrite NEGATIVE, Urine Bilirubin NEGATIVE, Urine Urobilinogen 0.2, Urine Leukocyte Esterase 2+H, Urine RBC (Auto) NEGATIVE, Urine RBC RARE, Urine WBC 5-10H, Urine Squamous Epithelial Cells 0-2, Urine Renal Epithelial Cells RARE, Urine Crystals NONE, Urine Bacteria NEGATIVE, Urine Casts PRESENT, Urine Hyaline Casts 0-2H, Urine Mucus SMALLH, Urine Culture Indicated YES, Urine Opiates Screen NEGATIVE, Urine Oxycodone Screen NEGATIVE, Urine Methadone Screen NEGATIVE, Urine Barbiturates Screen NEGATIVE, Ur Tricyclic Antidepressants Screen NEGATIVE, Urine Phencyclidine Screen NEGATIVE, Urine Amphetamines Screen NEGATIVE, Urine Methamphetamines Screen NEGATIVE, Urine Benzodiazepines Screen NEGATIVE, Urine Cocaine Screen NEGATIVE, Urine Cannabinoids Screen NEGATIVE 08/26/23 04:01: White Blood Count 11.1H, Red Blood Count 4.51, Hemoglobin 13.6, Hematocrit 40, Mean Corpuscular Volume 90, Mean Corpuscular Hemoglobin 30, Mean Corpuscular Hemoglobin Concent 34, Red Cell Distribution Width 12.3, Platelet Count 239, Mean Platelet Volume 10.1, Immature Granulocyte % (Auto) 0, Neutrophils (%) (Auto) 65, Lymphocytes (%) (Auto) 26, Monocytes (%) (Auto) 7, Eosinophils (%) (Auto) 1, Basophils (%) (Auto) 0, Neutrophils # (Auto) 7.2, Lymphocytes # (Auto) 2.9, Monocytes # (Auto) 0.8, Eosinophils # (Auto) 0.2, Basophils # (Auto) 0.0, Immature Granulocyte # (Auto) 0.0, Sodium Level 140, Potassium Level 3.8, C hloride Level 108H, Carbon Dioxide Level 24, Anion Gap 8, Blood Urea Nitrogen 12, Creatinine 0.73, Estimat Glomerular Filtration Rate 94, BUN/Creatinine Ratio 16, Glucose Level 127H, Calcium Level 9.5, Corrected Calcium 9.7, Magnesium Level 1.9, Total Bilirubin 0.4, Aspartate Amino Transf (AST/SGOT) 18, Alanine Aminotransferase (ALT/SGPT) 16, Alkaline Phosphatase 85, Total Protein 7.2, Albumin 3.7, Phosphorus Level 3.8 Pending Labs Laboratory Tests 08/25/23 23:15: White Blood Count 12.9, Red Blood Count 4.58, Hemoglobin 13.9, Hematocrit 41, Mean Corpuscular Volume 89, Mean Corpuscular Hemoglobin 30, Mean Corpuscular Hemoglobin Concent 34, Red Cell Distribution Width 12.4, Platelet Count 243, Mean Platelet Volume 9.9, Immature Granulocyte % (Auto) 0, Neutrophils (%) (Auto) 59, Lymphocytes (%) (Auto) 30, Monocytes (%) (Auto) 9, Eosinophils (%) (Auto) 2, Basophils (%) (Auto) 0, Neutrophils # (Auto) 7.6, Lymphocytes # (Auto) 3.8, Monocytes # (Auto) 1.2, Eosinophils # (Auto) 0.2, Basophils # (Auto) 0.0, Immature Granulocyte # (Auto) 0.0, Prothrombin Time 14.4, INR Comment 1.1, Activated Partial Thromboplast Time 33, Sodium Level 140, Potassium Level 4.2, Chloride Level 102, Carbon Dioxide Level 26, Anion Gap 12, Blood Urea Nitrogen 13, Creatinine 0.74, Estimat Glomerular Filtration Rate 93, BUN/Creatinine Ratio 18, Glucose Level 107, Calcium Level 10.0, Corrected Calcium 9.9, Magnesium Level 2.3, Total Bilirubin 0.3, Aspartate Amino Transf (AST/SGOT) 21, Alanine Aminotransferase (ALT/SGPT) 18, Alkaline Phosphatase 97, Troponin I < 0.30, Pro-B-Type Natriuretic Peptide 103.9, Total Protein 8.0, Albumin 4.1 08/25/23 23:44: Urine Color YELLOW, Urine Clarity CLEAR, Urine pH 6.0, Urine Specific [place] <=1.005, Urine Protein NEGATIVE, Urine Glucose (UA) NEGATIVE, Urine Ketones NEGATIVE, Urine Nitrite NEGATIVE, Urine Bilirubin NEGATIVE, Urine Urobilinogen 0.2, Urine Leukocyte Esterase 2+, Urine RBC (Auto) NEGATIVE, Urine RBC RARE, Urine WBC 5-10, Urine Squamous Epithelial Cells 0-2, Urine Renal Epithelial Cells RARE, Urine Crystals NONE, Urine Bacteria NEGATIVE, Urine Casts PRESENT, Urine Hyaline Casts 0-2, Urine Mucus SMALL, Urine Culture Indicated YES, Urine Opiates Screen NEGATIVE, Urine Oxycodone Screen NEGATIVE, Urine Methadone Screen NEGATIVE, Urine Barbiturates Screen NEGATIVE, Ur Tricyclic Antidepressants Screen NEGATIVE, Urine Phencyclidine Screen NEGATIVE, Urine Amphetamines Screen NEGATIVE, Urine Methamphetamines Screen NEGATIVE, Urine Benzodiazepines Screen NEGATIVE, Urine Cocaine Screen NEGATIVE, Urine Cannabinoids Screen NEGATIVE 08/26/23 04:01: White Blood Count 11.1, Red Blood Count 4.51, Hemoglobin 13.6, Hematocrit 40, Mean Corpuscular Volume 90, Mean Corpuscular Hemoglobin 30, Mean Corpuscular Hemoglobin Concent 34, Red Cell Distribution Width 12.3, Platelet Count 239, Mean Platelet Volume 10.1, Immature Granulocyte % (Auto) 0, Neutrophils (%) (Auto) 65, Lymphocytes (%) (Auto) 26, Monocytes (%) (Auto) 7, Eosinophils (%) (Auto) 1, Basophils (%) (Auto) 0, Neutrophils # (Auto) 7.2, Lymphocytes # (Auto) 2.9, Monocytes # (Auto) 0.8, Eosinophils # (Auto) 0.2, Basophils # (Auto) 0.0, Immature Granulocyte # (Auto) 0.0, Sodium Level 140, Potassium Level 3.8, Chloride Level 108, Carbon Dioxide Level 24, Anion Gap 8, Blood Urea Nitrogen 12, Creatinine 0.73, Estimat Glomerular Filtration Rate 94, BUN/Creatinine Ratio 16, Glucose Level 127, Calcium Level 9.5, Corrected Calcium 9.7, Magnesium Level 1.9, Total Bilirubin 0.4, Aspartate Amino Transf (AST/SGOT) 18, Alanine Aminotransferase (ALT/SGPT) 16, Alkaline Phosphatase 85, Total Protein 7.2, Albumin 3.7, Phosphorus Level 3.8 Discharge Home Medications: Active Scripts Active Levothyroxine Sodium 88 Mcg Tablet 88 Mcg PO DAILY@0630 365 Days Metoprolol Tartrate 50 Mg Tablet 100 Mg PO BID Multaq (Dronedarone HCl) 400 Mg Tablet 400 Mg PO BID Eliquis (Apixaban) 5 Mg Tablet 5 Mg PO BID 30 Days Instructions to patient/family Please see electronic discharge instructions given to patient. DEMETRIA JASSO DO Aug 26, 2023 12:38
--- NOTE | 2023-08-26 13:28 | Cardioversion ---
Cardioversion PROCEDURE PHYSICIAN: Be Kamara DATE OF PROCEDURE: 08/26/23 DIRECT EXTERNAL ELECTRICAL CARDIOVERSION: Indications: Atrial Fibrillation Preoperative diagnoses: Atrial Fibrillation Postoperative diagnosis: Sinus rhythm, Successful Electrical Cardioversion History: 58-year-old lady admitted with atrial fibrillation, palpitation. Has been borderline hypotensive. Has been on oral anticoagulation without interruption. Electrocardioversion was advised Anesthesia: By Anesthesia services Complications: None Specimen: None Contrast: 0 Flouroscopy: none Procedure Details: The patient was brought the [employer] after informed consent was taken, all the risks and complications were explained including the risk of stroke. Electrical cardioversion was carried out with anesthesia support with propofol. 120 joules of synchronized shock was delivered through external patches which promptly restored sinus rhythm. The patient tolerated the procedure well. Conclusions: Successful electrical cardioversion terminating atrial fibrillation BE KAMARA MD Aug 26, 2023 13:28
== END 2023-08-26 12:35 | disposition home or self-care (01) ==
LOC: EDUNIT# 22:58 → ER FS 22:59 → ICU 23:01 → UNDOADMOB 08-26 01:50 → UNDODISOB 08-26 14:00
PROVIDERS: ADMIT Internal Medicine; ATTEND Internal Medicine
DX: I48.0 Paroxysmal atrial fibrillation (principal); R00.2 Palpitations; N39.0 Urinary tract infection, site not specified; I10 Essential (primary) hypertension; E03.9 Hypothyroidism, unspecified; G47.30 Sleep apnea, unspecified; R00.0 Tachycardia, unspecified; Z79.01 Long term (current) use of anticoagulants; Z79.899 Other long term (current) drug therapy; Z79.890 Hormone replacement therapy; Z85.3 Personal history of malignant neoplasm of breast; Z90.10 Acquired absence of unspecified breast and nipple
CPT/HCPCS: 36415; 71045; 80053; 80306; 81000; 83735; 83880; 84100; 84484; 85025; 85610; 85730; 87081; 87088; 93005; 93306; 96365; 96366; G0378